=== PATIENT | female | born 1945 | race Caucasian/White ===

== ENCOUNTER → 2017-04-06 | Day surgery (SDC) | payer MEDICARE ==
[~2017-04-06] MED LIST: BUPIVACAINE/EPINEPHRINE 0.25% PF 30 ML VIAL INFIL ONE; LIDOCAINE 1%/EPINEPHrine 1:200,000 PF SOLN 30 ML VIAL ONE; MIDAZOLAM HCL 2 MG/2 ML VIAL ONE; ONDANSETRON HCL 4 MG/2 ML VIAL IV PUSH ONE; PROPOFOL 200 MG/20 ML AMP IV ONE; ceFAZolin 2 GM PREMIX 50 ML ONE
--- NOTE | 2017-04-06 13:43 | TN ---
cc: EDDIE NEWMAN MD DATE OF SURGERY: 04/06/2017 PREOPERATIVE DIAGNOSIS Left mid-back basal cell carcinoma, status post local excision with positive margin. POSTOPERATIVE DIAGNOSIS Left mid-back basal cell carcinoma, status post local excision with positive margin. PROCEDURE PERFORMED Wide local excision of left back lesion, history of basal cell carcinoma. SURGEON Dr. Eddie Newman [employer]ICE See OR sheet. ANESTHESIA MAC. IV FLUIDS See anesthesia sheet. ESTIMATED BLOOD LOSS 5 cc. DRAINS None. COMPLICATIONS None. WOUND CLASSIFICATION Clean. FINDINGS Good hemostasis with bipolar. SPECIMEN Left back lesion, short stitch superior, long stitch lateral. INDICATION The patient is a 71-year-old female who presented with basal cell carcinoma to the mid left back. She underwent dermatologic resection with positive margins x2. She was sent to the office for further evaluation including re-excision to negative margins. Discussed with the patient in detail who stated understanding and agreed. DETAILS OF PROCEDURE The patient was taken to the operating suite and placed in the left side up decubitus position. She was prepped and draped in the usual sterile fashion after induction of MAC anesthesia. A brief timeout was done stating correct patient, procedure surgical site, and all were in agreement with this. Attention was directed to the left back where markings for a wide local excision was done. Local anesthetic was injected. An elliptical incision was made on previous excisional scar. This was done with an 11 blade. Further dissection was done with an 11 blade and bipolar cautery. A short stitch was placed superior and a long stitch placed lateral. The lesion was completely excised and sent for pathology. The wound was closed in layers including 3-0 Vicryl suture interrupted x2 layers and 4-0 Monocryl subcuticular sutures. 3-0 nylon was also placed as well to reduce tension on the wound. A sterile dressing was placed. The patient tolerated the procedure well and had no intraoperative complication. MD YUE Cabrera/BT /1:14 PM /1:32 PM
== END | disposition home or self-care (01) ==
LOC: ESDC 11:34
PROVIDERS: ATTEND Surgery
DX: C44.519 Basal cell carcinoma of skin of other part of trunk (principal)
CPT/HCPCS: 00300; 11604; 12032; 88305; J0690; J2250; J2405; J3010